=== PATIENT | female | born 2000 | race American Indian/Alaskan Native ===

== ENCOUNTER 2021-12-07 18:47 | Emergency (ER) | payer SELFPAY ==
[2021-12-07 20:18] VITALS: BP 122/65
--- NOTE | 2021-12-07 20:29 | Emergency Department Report ---
Suture/Staple Removal - HPI Chief Complaint: Laceration/Recheck/Suture Stated Complaint: SUTURE REMOVAL Time Seen by Provider: 12/07/21 20:24 When Sutures or Ric Placed: 11-14 Days Ago Wound Location: Left palm of hand no complications sutures x2 ED Review of Systems ROS: Stated complaint: SUTURE REMOVAL Other details as noted in HPI Comment: All other systems reviewed and negative Suture Removal Exam - Exam General: Vital signs noted. No distress. Alert and acting appropriately. Wound: No Pathologic Erythema, No Tenderness, No Drainage, No Pus, No Wound Dehiscence Other Systems: All other systems reviewed and are unremarkable. ED Course Vital Signs 12/07/21 19:40 Temperature 99.3 F Pulse Rate 74 Respiratory 18 Rate Blood Pressure 122/65 O2 Sat by Pulse 100 Oximetry Critical care attestation.: If time is entered above; I have spent that time in minutes in the direct care of this critically ill patient, excluding procedure time. ED Disposition Clinical Impression: Visit for suture removal Disposition: 01 HOME / SELF CARE / HOMELESS Is pt being admited?: No Does the pt Need Aspirin: No Condition: Stable Instructions: Incision Care, Adult, Suture Removal, Care After Referrals: [facility] [Provider Group] - 3-5 Days
== END 2021-12-07 20:36 | disposition home or self-care (01) ==
LOC: ED 18:47
DX: S61.412D Laceration without foreign body of left hand, subsequent encounter (principal); X58.XXXD Exposure to other specified factors, subsequent encounter; Z48.02 Encounter for removal of sutures